=== PATIENT | female | born 1965 | race Caucasian/White ===

== ENCOUNTER 2020-03-08 16:44 | Outpatient (CLI) | payer BC, SELFPAY ==
[2020-03-08 17:28] LABS: SARS-CoV-2 Ag Negative (Negative)
== END 2020-03-08 16:45 | disposition home or self-care (01) ==
LOC: CHSLAB 16:49
PROVIDERS: PCP Internal Medicine; Visit Provider Internal Medicine
DX: Z20.828 Contact with and (suspected) exposure to other viral communicable diseases (principal)
CPT/HCPCS: 87426

== ENCOUNTER 2020-09-13 09:10 | Outpatient (CLI) | payer BC, SELFPAY ==
[2020-09-13 10:30] LABS: SARS-CoV-2 RNA PCR Negative (Negative)
== END 2020-09-13 09:11 | disposition home or self-care (01) ==
LOC: CHSLAB 09:13
PROVIDERS: PCP Internal Medicine; Visit Provider Internal Medicine
DX: Z20.822 Contact with and (suspected) exposure to COVID-19 (principal)
CPT/HCPCS: C9803; U0003; U0005

== ENCOUNTER 2020-09-28 08:26 | Outpatient (CLI) | payer BC, SELFPAY ==
--- NOTE | ~2020-09-28 | DEXA_ITS ---
Bone Density Report Name: Serene Chin Age: 55 Sex: Female Ethnicity: White Date of : 1965 Indication: postmenopausal; screening for osteoporosis; Referring Provider: Cali Sanchez Study: Bone densitometry was performed. Exam Date: September 28, 2020 Accession number: [id number] Bone Density: Region BMD T-score Z-score Classification AP Spine(L1, L3, L4) 1.116 0.6 1.6 Normal Femoral Neck (Left) 0.881 0.3 1.3 Normal Total Hip (Left) 1.020 0.6 1.3 Normal Femoral Neck (Right) 0.906 0.5 1.5 Normal Total Hip (Right) 1.063 1.0 1.6 Normal Femoral Neck Mean 0.894 0.4 1.4 Normal Total Hip Mean 1.042 0.8 1.5 Normal World Health Organization criteria for BMD impression classify patients as: Normal (T-score at or above -1.0), Osteopenia (T-score between -1.0 and -2.5), or Osteoporosis (T-score at or below -2.5). 10-year Fracture Risk: FRAX not reported because: All T-scores for Spine Total, Hip Total, Femoral Neck at or above -1.0 Clinical Information Provided by Patient: Patient maximum height was 65 Menopause Age: 50 No regular weight bearing exercise Drinks caffeinated beverages Onset of menses at age 14 Number of children 3 Impression: The patient has normal bone mass. Discussion: BONE DENSITY IS ABOVE THE MINIMUM DESIRABLE LEVEL AT ALL SKELETAL SITES TESTED. This patient?s bone mineral density is above the minimum desirable level (T-score -1.0 or better) at all sites measured. The patient should follow a healthful lifestyle (good nutrition with adequate calcium and vitamin D, and appropriate weight-bearing exercise). Follow-Up: Consider repeating this study in 5 years or sooner if there is some new clinical indication. Reported by: Dr. Toney Boyce on 09/28/2020 9:08:00 AM. Reviewed, dictated and finalized at location A. [facility]
--- NOTE | ~2020-09-28 | MM_ITS ---
EXAMINATION: MM screening jacqueline BI w leni HISTORY: Screening mammogram TECHNIQUE: Craniocaudal and mediolateral oblique 3-D tomosynthesis images were obtained and synthetic 2-D images were generated. CAD analysis was submitted and interpreted. COMPARISON: 10/08/2018 bilateral digital screening mammogram BREAST PARENCHYMAL COMPOSITION: The breasts are almost entirely fatty. FINDINGS: There is no evidence of suspicious mass, calcification, or architectural distortion to sugg est malignancy in either breast. There has been no suspicious interval change. IMPRESSION: 1. No mammographic evidence of malignancy. 2. Recommend routine screening mammography in one year. BI-RADS Category 1: Negative Reviewed, dictated and finalized at location A.
[2020-09-28 08:37] LABS: Appearance Urine Clear (Clear); Basophils Absolute Auto 0.04 K/mm3 (0.00-0.10); Basophils Percent Auto 0.5 % (0.0-1.0); Bilirubin Urine Negative (Negative); Blood Urine Negative (Negative); Eosinophils Absolute Auto 0.19 K/mm3 (0.02-0.50); Eosinophils Percent Auto 2.2 % (1.0-6.0); Glucose Urine UA Negative (Negative); Hematocrit 40.7 % (35.0-49.0); Hemoglobin 13.3 g/dL (12.0-15.0); Immature Granulocyte Absolute 0.02 K/mm3 (0.00-0.00); Immature Granulocyte Percent A 0.2 % (0.0-0.0); Ketones Urine Negative (Negative); Leukocyte Esterase Ur Negative (Negative); Lymphocytes Absolute Auto 2.46 K/mm3 (1.10-4.50); Lymphocytes Percent Auto 28.4 % (18.0-42.0); Mean Corpuscular HGB Conc 32.7 g/dL (32.0-36.0); Mean Corpuscular Hemoglobin 27.5 pg (27.0-31.0); Mean Corpuscular Volume 84.1 fL (78.0-102.0); Mean Platelet Volume 9.5 fl (9.2-11.8); Monocytes Absolute Auto 0.49 K/mm3 (0.10-0.90); Monocytes Percent Auto 5.7 % (2.0-11.0); Neutrophils Absolute Auto 5.5 K/mm3 (1.7-7.2); Nitrate Urine Negative (Negative); Platelet Count Result 333 K/mm3 (150-420); Protein Urine Negative (Negative); Red Blood Count 4.84 M/mm3 (4.20-5.40); Red Cell Distribution Width 13.2 % (11.6-14.4); Specific Grav Ur <= 1.005 (1.010-1.020); Urobilinogen Urine 0.2 mg/dL (0.2-1.0); White Blood Count 8.7 K/mm3 (4.8-10.8)
[2020-09-28 08:39] LABS: Add Urine Microscopic? NO; Color Urine Light Yellow (Yellow)
[2020-09-28 09:31] LABS: Alanine Aminotransferase 33 U/L (14-59); Albumin Level 4.1 g/dL (3.4-5.0); Alkaline Phosphatase 59 U/L (46-116); Anion Gap 8 mmol/L (8-16); Aspartate Amino Transferase 14 U/L (15-37); Bilirubin,Total 0.5 mg/dL (0.00-1.00); Blood Urea Nitrogen 13 mg/dL (7-18); Calcium 9.4 mg/dL (8.5-10.1); Carbon Dioxide 31 mmol/L (21-32); Chloride 101 mmol/L (98-108); Cholesterol 211 mg/dL (0-200); Estimated Glomerular Filt Rate > 60; Glucose 110 mg/dL (70-99); HDL Direct 44 mg/dL (40-60); LDL Cholesterol Calculated 145 mg/dL (<130); Osmolality Calculated 291 mOsm/kg (285-295); Potassium 4.4 mmol/L (3.5-5.1); Sodium 140 mmol/L (136-145); Thyroid Stimulating Hormone 1.85 uIU/mL (0.36-3.74); Total Protein 7.4 g/dL (6.4-8.2); Triglycerides 111 mg/dL (0-150)
[2020-09-28 12:31] LABS: Hemoglobin A1C 6.1 % (<5.7)
== END 2020-09-28 08:27 | disposition home or self-care (01) ==
PROVIDERS: PCP Internal Medicine; Visit Provider Internal Medicine
DX: Z00.00 Encounter for general adult medical examination without abnormal findings (principal); R73.01 Impaired fasting glucose; I10 Essential (primary) hypertension; Z12.31 Encounter for screening mammogram for malignant neoplasm of breast
CPT/HCPCS: 36415; 77063; 77067; 77080; 80053; 80061; 81003; 83036; 84443; 85025

== ENCOUNTER 2020-12-05 13:09 | Outpatient (CLI) | payer BC, SELFPAY ==
[2020-12-05 14:21] LABS: SARS-CoV-2 RNA PCR Negative (Negative)
== END 2020-12-05 13:10 | disposition home or self-care (01) ==
PROVIDERS: PCP Internal Medicine; Visit Provider Internal Medicine
DX: Z20.822 Contact with and (suspected) exposure to COVID-19 (principal)
CPT/HCPCS: C9803; U0003; U0005

== ENCOUNTER 2021-03-23 10:28 | Outpatient (CLI) | payer BC, SELFPAY ==
[2021-03-23 11:32] LABS: Influenza A QL RT-PCR Negative (Negative); Influenza B QL RT-PCR Negative (Negative); SARS-CoV-2 RNA PCR Negative (Negative)
== END 2021-03-23 10:29 | disposition home or self-care (01) ==
LOC: CHSIMG 10:30
PROVIDERS: PCP Internal Medicine; Visit Provider Internal Medicine
DX: R50.9 Fever, unspecified (principal); R11.0 Nausea; Z20.822 Contact with and (suspected) exposure to COVID-19
CPT/HCPCS: 87502; C9803; U0003; U0005

== ENCOUNTER 2021-04-30 09:39 | Outpatient (CLI) | payer BC, SELFPAY ==
[2021-04-30 11:03] LABS: Influenza Control Valid (Valid); SARS-CoV-2 Ag Negative (Negative)
== END 2021-04-30 09:40 | disposition home or self-care (01) ==
LOC: CHSLAB 09:41
PROVIDERS: PCP Internal Medicine; Visit Provider Internal Medicine
DX: J06.9 Acute upper respiratory infection, unspecified (principal); Z20.822 Contact with and (suspected) exposure to COVID-19
CPT/HCPCS: 87081; 87426; 87804; 87880; C9803

== ENCOUNTER 2022-12-14 07:43 | Outpatient (CLI) | payer SELFPAY ==
[2022-12-14 08:16] LABS: Basophils Absolute Auto 0.04 K/mm3 (0.00-0.10); Basophils Percent Auto 0.6 % (0.0-1.0); Eosinophils Absolute Auto 0.26 K/mm3 (0.02-0.50); Eosinophils Percent Auto 3.6 % (1.0-6.0); Hematocrit 37.2 % (35.0-49.0); Immature Granulocyte Absolute 0.01 K/mm3 (0.00-0.00); Immature Granulocyte Percent A 0.1 % (0.0-0.0); Lymphocytes Absolute Auto 1.95 K/mm3 (1.10-4.50); Lymphocytes Percent Auto 26.8 % (18.0-42.0); Mean Corpuscular HGB Conc 32.3 g/dL (32.0-36.0); Mean Corpuscular Hemoglobin 27.4 pg (27.0-31.0); Mean Corpuscular Volume 84.9 fL (78.0-102.0); Mean Platelet Volume 9.7 fl (9.2-11.8); Monocytes Absolute Auto 0.37 K/mm3 (0.10-0.90); Monocytes Percent Auto 5.1 % (2.0-11.0); Neutrophils Absolute Auto 4.6 K/mm3 (1.7-7.2); Neutrophils Percent Auto 63.8 % (50.0-70.0); Platelet Count Result 386 K/mm3 (150-420); Red Blood Count 4.38 M/mm3 (4.20-5.40); Red Cell Distribution Width 13.2 % (11.6-14.4); White Blood Count 7.3 K/mm3 (4.8-10.8)
[2022-12-14 08:23] LABS: Appearance Urine Clear (Clear); Bilirubin Urine Negative (Negative); Color Urine Light Yellow (Yellow); Glucose Urine UA Negative (Negative); Ketones Urine Negative (Negative); Leukocyte Esterase Ur Negative (Negative); Nitrate Urine Negative (Negative); Protein Urine Negative (Negative); Specific Grav Ur 1.015 (1.010-1.020); Urobilinogen Urine 0.2 mg/dL (0.2-1.0); pH Urine 5.5 (5.0-8.0)
[2022-12-14 08:24] LABS: Add Urine Microscopic? NO; Blood Urine Negative (Negative)
[2022-12-14 08:35] LABS: Hemoglobin A1C 6.3 % (<5.7)
[2022-12-14 08:40] LABS: Alanine Aminotransferase 22 U/L (14-59); Albumin Level 3.8 g/dL (3.4-5.0); Alkaline Phosphatase 68 U/L (46-116); Anion Gap 6 mmol/L (8-16); Aspartate Amino Transferase 13 U/L (15-37); Bilirubin,Total 0.6 mg/dL (0.00-1.00); Blood Urea Nitrogen 17 mg/dL (7-18); Calcium 8.9 mg/dL (8.5-10.1); Carbon Dioxide 31 mmol/L (21-32); Chloride 103 mmol/L (98-108); Cholesterol 212 mg/dL (0-200); Estimated Glomerular Filt Rate > 60; Glucose 102 mg/dL (70-99); HDL Direct 51 mg/dL (40-60); LDL Cholesterol Calculated 137 mg/dL (<130); Osmolality Calculated 291 mOsm/kg (285-295); Potassium 4.2 mmol/L (3.5-5.1); Sodium 140 mmol/L (136-145); Thyroid Stimulating Hormone 2.22 uIU/mL (0.36-3.74); Total Protein 6.9 g/dL (6.4-8.2); Triglycerides 118 mg/dL (0-150)
== END 2022-12-14 07:44 | disposition home or self-care (01) ==
LOC: CHSLAB 07:45
PROVIDERS: PCP Internal Medicine; Visit Provider Internal Medicine
DX: Z00.00 Encounter for general adult medical examination without abnormal findings (principal); I10 Essential (primary) hypertension; R73.03 Prediabetes
CPT/HCPCS: 36415; 80053; 80061; 81003; 83036; 84443; 85025

== ENCOUNTER 2022-12-16 14:12 | Outpatient (CLI) | payer OTHER, SELFPAY ==
--- NOTE | ~2022-12-16 | US_ITS ---
EXAMINATION: US venous doppler [facility] DATE: 12/16/2022 14:46 INDICATION: Lower limb swelling TECHNIQUE: Grayscale ultrasound images without and with compression and Doppler ultrasound images of the bilateral lower extremity veins were obtained. COMPARISON: None. FINDINGS: The visualized portions of right common femoral vein, profunda (deep) femoral vein, femoral vein, pop liteal vein, posterior tibial veins, peroneal veins, gastrocnemius vein and greater saphenous vein ou tflow are patent. The visualized portions of left common femoral vein, profunda femoral vein, femoral vein, popliteal v ein, posterior tibial veins, peroneal veins, gastrocnemius vein and greater saphenous vein outflow ar e patent. IMPRESSION: 1. No deep venous thrombosis in either lower limb. Reviewed, dictated and finalized at location A.
== END 2022-12-16 14:13 | disposition home or self-care (01) ==
PROVIDERS: PCP Internal Medicine; Visit Provider Internal Medicine
DX: R60.9 Edema, unspecified (principal)
CPT/HCPCS: 93970

== ENCOUNTER 2022-12-30 15:43 | Outpatient (CLI) | payer OTHER, SELFPAY ==
--- NOTE | ~2022-12-30 | XR_ITS ---
EXAMINATION: XR chest 2V 12/30/2022 16:49 INDICATION: Back pain. PROCEDURE: 2 view chest COMPARISON: No prior studies for comparison. FINDINGS: The lungs are clear. The cardiomediastinal silhouette is within normal limits. There are no pleural effusions. There is no pneumothorax suspected. IMPRESSION: 1: NO ACUTE CARDIOPULMONARY DISEASE. Reviewed, dictated and finalized at location B.
--- NOTE | ~2022-12-30 | XR_ITS ---
Thoracic spine: Clinical Indication: Back pain AP and lateral views were performed. No fracture is seen. There is normal alignment of the vertebrae. The intervertebral disc spaces appe ar normal. Paravertebral soft tissues appear normal. Impression: No significant abnormalities noted. Reviewed, dictated and finalized at [facility]. Impression: No significant abnormalities noted.
[2022-12-30 16:35] LABS: D Dimer 0.26 mg/L (0.19-0.50)
[2022-12-30 16:47] LABS: Sodium 140 mmol/L (136-145)
[2022-12-30 16:48] LABS: Alanine Aminotransferase 13 U/L (14-59); Albumin Level 3.9 g/dL (3.4-5.0); Alkaline Phosphatase 70 U/L (46-116); Anion Gap 4 mmol/L (8-16); Aspartate Amino Transferase 14 U/L (15-37); Bilirubin,Total 0.3 mg/dL (0.00-1.00); Blood Urea Nitrogen 21 mg/dL (7-18); Calcium 9.1 mg/dL (8.5-10.1); Carbon Dioxide 34 mmol/L (21-32); Chloride 102 mmol/L (98-108); Creatine Kinase 95 U/L (26-192); Estimated Glomerular Filt Rate > 60; Glucose 93 mg/dL (70-99); Magnesium 1.8 mg/dL (1.8-2.4); NT Pro B Type Natriuretic Pept 94 pg/mL (0-125); Osmolality Calculated 293 mOsm/kg (285-295); Potassium 3.7 mmol/L (3.5-5.1); Total Protein 7.5 g/dL (6.4-8.2); Troponin I 22.8 ng/L (0.00-60.4)
== END 2022-12-30 15:44 | disposition home or self-care (01) ==
LOC: CHSLAB 15:46
PROVIDERS: PCP Internal Medicine; Visit Provider Internal Medicine
DX: M54.6 Pain in thoracic spine (principal); R60.9 Edema, unspecified
CPT/HCPCS: 36415; 71046; 72070; 80053; 82550; 82553; 83735; 83880; 84484; 85380

== ENCOUNTER 2023-01-20 15:21 | Outpatient (CLI) | payer OTHER, SELFPAY ==
--- NOTE | ~2023-01-20 | CT_ITS ---
EXAMINATION: CT abdomen pelvis w con DATE: 01/20/2023 16:17 INDICATION: Abdominal pain, left upper quadrant and epigastric area, for one month TECHNIQUE: Computed tomography (CT) of the abdomen and pelvis was performed with 100 CC Omnipaque 350 intravenous contrast. Automated exposure control and iterative reconstruction technique were employe d. Exam dose: 1172.04 mGy-cm total exam DLP. COMPARISON: None. FINDINGS: The lung bases are clear. Normal heart size. No pericardial or pleural effusion. Status post cholecystectomy. No hepatic, splenic, pancreatic, and adrenal or renal space-occupying ma ss lesion. No urinary tract calculus or hydroureteronephrosis. The urinary bladder is evacuated. Normal caliber of the abdominal aorta. No intraperitoneal or retroperitoneal or pelvic mass lesion or adenopathy or ascites is detected. Small uterus with fibroids. Normal appendix. No bowel obstruction, bowel wall thickening, pneumatosis or intraperitoneal free air is detected. Very small fat-containing umbilical hernia. No suspicious osteolytic or osteoblastic lesions are noted. IMPRESSION: Status post cholecystectomy Normal appendix Reviewed, dictated and finalized at Location A. Reviewed, dictated and finalized at location B.
== END 2023-01-20 15:22 | disposition home or self-care (01) ==
PROVIDERS: PCP Internal Medicine; Visit Provider Internal Medicine
DX: R10.9 Unspecified abdominal pain (principal); Z90.49 Acquired absence of other specified parts of digestive tract
CPT/HCPCS: 74177; Q9967

== ENCOUNTER 2023-01-24 15:28 | Outpatient (CLI) | payer OTHER, SELFPAY ==
--- NOTE | ~2023-01-24 | MR_ITS ---
EXAMINATION: MR thoracic spine wo con DATE: 01/24/2023 16:12 INDICATION: Bilateral thoracic radiculopathy. TECHNIQUE: Magnetic resonance imaging (MRI) of the thoracic spine was performed without intravenous c ontrast. COMPARISON: Thoracic spine radiographs 12/30/2022 FINDINGS: Bone alignment is normal. Vertebral body heights and intervertebral disc heights are normal . The discs do not extend beyond the endplate margins in the thoracic spine. There is multilevel mild facet joint osteoarthritis. No neural foraminal stenosis or central canal stenosis. There is syringo hydromyelia from T2 to T7 with maximum diameter of 4 mm. At T9 and T10, there is syringohydromyelia w ith diameter of 1 mm. IMPRESSION: 1. 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 Reviewed, dictated and finalized at location E.
== END 2023-01-24 15:29 | disposition home or self-care (01) ==
PROVIDERS: PCP Internal Medicine; Visit Provider Internal Medicine
DX: M54.14 Radiculopathy, thoracic region (principal)
CPT/HCPCS: 72146

== ENCOUNTER 2023-03-20 08:08 | Outpatient (CLI) | payer OTHER, SELFPAY ==
--- NOTE | ~2023-03-20 | MR_ITS ---
MRI of the thoracic spine Clinical History: Syrinx Technique: Axial T2-weighted and gradient images, and sagittal T1-weighted, T2-weighted, and STIR miriam ges were acquired. Following intravenous administration of 20 cc MultiHance gadolinium, T1-weighted f at-sat imaging was performed in the axial and sagittal planes. Findings: There is no fracture or subluxations thoracic spine. Vertebral bodies maintain normal heigh t and alignment. No bone marrow signal abnormality seen. No disc bulge or herniation seen at any thoracic level. No spinal canal stenosis or cord compression identified. There is dilatation of the central canal the spinal cord at the T2 and T3 levels, to a maximum of 4 m m in diameter. No other abnormal signal seen in the spinal cord. No abnormal postcontrast enhancement identified. Paravertebral soft tissues are unremarkable. 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 No abnormal enha ncement or associated mass lesion identified. Reviewed, dictated and finalized at [facility]. 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 No abnormal enhancement or associated mass lesion identified.
--- NOTE | ~2023-03-20 | MR_ITS ---
MRI of the cervical spine Clinical History: Serial Technique: Axial T2-weighted and gradient images, and sagittal T1-weighted, T2-weighted, and STIR miriam ges were acquired. Following intravenous administration of 20 cc MultiHance gadolinium, T1-weighted f at-sat imaging was performed in the axial and sagittal planes. Findings: There is no fracture or subluxation. There is straightening of the normal cervical lordosis . No bone marrow signal abnormality seen. There is no significant disc bulge or herniation at any level. No spinal canal stenosis or cord comp ression identified in the cervical spine. There is right facet arthropathy and right neural foraminal narrowing at C3-C4. Remaining neural foramina are preserved. No abnormal signal seen in the cervical spinal cord. No syrinx of the cervical cord identified. No ab normal postcontrast enhancement identified. Paravertebral soft tissues are unremarkable. Impression: Cervical spinal cord is unremarkable. Right facet arthropathy with right neural foraminal narrowing at C3-C4. Reviewed, dictated and finalized at [facility]. ASSISTANT Impression: Cervical spinal cord is unremarkable. Right facet arthropathy with right neural foraminal narrowing at C3-C4.
== END 2023-03-20 08:09 ==
PROVIDERS: PCP Internal Medicine
DX: G95.0 Syringomyelia and syringobulbia (principal)
CPT/HCPCS: 72156; 72157; A9577

== ENCOUNTER 2023-03-26 15:50 | Outpatient (RCR) | payer OTHER, SELFPAY ==
--- NOTE | 2023-04-01 07:14 | OPREHPOC ---
Outpatient Therapy Plan of Care This is a Multidisciplinary Plan of Care that may contain components documented by all disciplines (PT, OT, and ST.) PT Problem 1 PT Problem #1 Knowledge Deficit PT Goal 1 Goal 1. independent and compliant with HEP Target Visit 2 PT Problem 2 PT Problem #2 Pain PT Goal 1 Goal 1. patient to report no return of lower back pain or LE symptoms. Target Visit 3 PT Problem 3 PT Problem #3 Impaired Strength PT Goal 1 Goal 1. improve core strength to 4/5 or better 2. improve bilateral hip strength to 5/5 Target Visit 3 PT Problem 4 PT Problem #4 Impaired Functional Mobil PT Goal 1 Goal 1. 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 oswestry to display no more than 20% functional decline Target Visit 3
--- NOTE | 2023-04-01 07:14 | PTOPEVAL1 ---
Assessment and note entered by JT File, PT Evaluation Information Assessment Status Evaluation Diagnosis midline back pain Onset 03/21/23 Subjective Information back in november, patient had pain in the midback that led around the L side to her chest, then it switched and went around the R side to her chest. she reports she also had diffculty with drinking coffee/hot liquids. she reports they found a cyst in her spine. she reports her pain will change frequently. she reports lately she has difficulty in the legs from her back. 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 Assessment PT Clinical Summary mrs. diego is a 57 yo woman who presents to skilled PT services for evaluation and treatment of lower back pain. she presents today without pain and without reproducible symptoms. she has a cyst in the spine that is a likely cause of the back pain and LE symptoms she reports at times. she displays some weakened core strength today, and would benefit from continued skilled PT to improve this strength. Plan of Care Interventions Electrical Stimulation,Hot Pack/Cold Pack,Manual Therapy,Neuro Re-education,Therapeutic Activities, Therapeutic Exercise PT Services Indicated Yes Treatment Frequency and 1x weekly for 3 visits Duration These treatments will address the objective and functional deficits as defined above. The patient will be advanced safely and appropriately in order for the patient to progress towards his/her prior level of function. Additional exercises will be introduced and as well as a comprehensive home exercise program upon discharge, if needed, ?to ensure carryover of functional gains achieved in the clinic. This treatment plan has been reviewed and agreement upon by the patient.
--- NOTE | 2023-04-18 11:18 | OPREHPOC ---
Outpatient Therapy Plan of Care This is a Multidisciplinary Plan of Care that may contain components documented by all disciplines (PT, OT, and ST.) PT Problem 1 PT Problem #1 Knowledge Deficit PT Goal 1 Goal 1. independent and compliant with HEP Target Visit 2 Progress Met PT Problem 2 PT Problem #2 Pain PT Goal 1 Goal 1. patient to report no return of lower back pain or LE symptoms. Target Visit 3 Progress Met PT Problem 3 PT Problem #3 Impaired Strength PT Goal 1 Goal 1. improve core strength to 4/5 or better 2. improve bilateral hip strength to 5/5 Target Visit 3 Progress Met PT Problem 4 PT Problem #4 Impaired Functional Mobil PT Goal 1 Goal 1. 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 oswestry to display no more than 20% functional decline Target Visit 3 Progress Met
--- NOTE | 2023-04-18 11:19 | PTOPDC ---
Assessment and note entered by JT File, PT Evaluation Information Assessment Status Discharge Diagnosis midline back pain Onset 03/21/23 Subjective Information patient reports he back feels good today. she reports she has no pain. she reports she has recently had a biopsy on the L arm, and reports the L elbow is a bit tender from this biopsy. Reported Pain Level Pain Score 0: Self Report Assessment PT Clinical Summary mrs. diego presents to skilled PT services for her 3rd skilled PT visit for midline back pain. she has had no pain since beginning therapy. her time in therapy has been spent working on improving LE and core strength. she has met all goals for skilled PT this date, and is ready to DC skilled PT. she will continue with HEP independent at home. Plan of Care PT Services Indicated Yes
== END 2023-04-18 14:47 | disposition home or self-care (01) ==
LOC: CHSPT 15:50
DX: M54.6 Pain in thoracic spine (principal)
CPT/HCPCS: 97110; 97161

== ENCOUNTER 2023-10-12 09:27 | Emergency (ER) | payer OTHER, SELFPAY ==
--- NOTE | ~2023-10-12 | XR_ITS ---
EXAMINATION: XR hand LT min 3V, XR wrist LT min 3V DATE: 10/12/2023 10:46 INDICATION: Left hand and wrist pain post fall TECHNIQUE: 1. Posteroanterior, ulnar deviation, oblique, and lateral views of the left wrist were obtained. 2. Dorsal palmar, oblique and lateral views of the left hand were obtained. COMPARISON: None. FINDINGS: Alignment of the hand and wrist is normal. No fracture identified. Mild osteoarthritis at the first carpometacarpal, the first metacarpophalangeal and multiple interphalangeal joints. Indolent appearin g lytic lesion with thin sclerotic margins at the left scaphoid waist likely representing a geode. N o focal soft tissue swelling. IMPRESSION: 1. Mild polyarticular osteoarthritis with no acute osseous abnormality at the left hand or wrist. Reviewed, dictated and finalized at location A. IMPRESSION: 1. Mild polyarticular osteoarthritis with no acute osseous abnormality at the l eft hand or wrist.
--- NOTE | ~2023-10-12 | XR_ITS ---
EXAMINATION: XR ribs LT 2V w CXR 2V DATE: 10/12/2023 10:46 INDICATION: Left rib pain post fall TECHNIQUE: PA and lateral views of the chest and 3 views of the left ribs were obtained. COMPARISON: Chest radiograph dated 12/30/22 FINDINGS: No rib fractures identified. No pneumothorax. No focal infiltrates, pleural effusion or pulmonary graeme ma. Cardiomediastinal silhouette is normal. Cholecystectomy clips in right upper quadrant. IMPRESSION: 1. No rib fracture or acute cardiopulmonary disease. Reviewed, dictated and finalized at location A.
[2023-10-12 09:51] VITALS: BP 149/87; PULSE 83; RESP 19; TEMP 37.3; O2SAT 96
--- NOTE | 2023-10-12 10:27 | ED.FALL ---
HPI - Fall General Chief Complaint: Fall Stated Complaint: fall down stairs last night-left hand and rib pain Time Seen by Provider: 10/12/23 10:01 Source: patient Mode of arrival: ambulatory Limitations: no limitations History of Present Illness HPI Narrative: [id number] female presents after an accidental fall when her 120 lb dog pulled on the leash and she accidentally fell on her left side Last night. She had some mild pain with her left knee and thigh however she states her primary issues are her left hand pain and left for pain as well as significant pain in her lateral and posterior left ribs. She denies any shortness of breath at rest although states that the pain is worse when she coughs or takes a deep breath. she took Aleve this morning. Related Data Allergies Allergy/AdvReac Type Severity Reaction Status Date / Time aspirin Allergy Severe PALPATATION Verified 10/12/23 10:00 S SWEET-N-LOW Allergy Severe TACHYCARDIA Uncoded 10/12/23 10:00 AND PALPATATIONS PMFSH Past Medical History Medical History (Updated 10/13/23 @ 00:01 by Nevaeh Willams) Right hand dominant Social History Social History (Updated 10/12/23 @ 10:40 by Yokasta Basilio MD) Additional living arrangements comments: Has a 120lb dog Exam Narrative: GENERAL: Well-appearing, well-nourished, and in no acute distress. HEAD: Normocephalic, atraumatic. EYES: Non injected, non icteric ENT: Nares clear, no rhinorrhea or epistaxis. NECK: Supple. CHEST: Speaking in full sentences. No respiratory distress. lungs clear to auscultation bilaterally with full inspiratory breath appreciated though slightly diminished on exhalation bilaterally. No ecchymossis along lateral /posterior chest. No subcutaneous emphysema. HEART: Regular rate and rhythm. . ABDOMEN: Soft, nondistended. EXTREMITIES: Normal range of motion. No edema. ecchymosis along mid and distal left thigh. Mild tenderness to palpation of left wrist and distal forearm. SKIN: Warm, dry, no rash. NEURO: No focal deficits. Alert and oriented x3. PSYCH: Normal mood and affect. Course Vital Signs Vital signs: Vital Signs Temperature 99.1 F 10/12/23 09:51 Pulse Rate 83 10/12/23 09:51 Respiratory Rate 19 06/23/24 09:51 Blood Pressure 149/87 H 10/12/23 09:51 Pulse Oximetry 96 10/12/23 09:51 Oxygen Delivery Room Air 10/12/23 09:51 Temperature 98.7 F 10/12/23 12:30 Pulse Rate 67 10/12/23 12:30 Respiratory Rate 18 10/12/23 12:30 Blood Pressure 131/70 10/12/23 12:30 Pulse Oximetry 100 10/12/23 12:30 Oxygen Delivery Room Air 10/12/23 09:51 MDM - Fall MDM Narrative Medical decision making narrative: Right hand dominant female presents with left hand/wrist pain and left sided chest/rib pain after accidentallly falling when the dog pulled on the leash. In the emergency department and vital signs show patient is afebrile but with mild hypertension. Patient initially attempted to go to urgent care because she didn't know if insurance covers ED visit. Not yet received imaging though. Patient given analgesic medication and will obtain plain film imaging. No acute process. Patient discharged in stable condition. Advised on supportive care and follow up. Differential Diagnosis Differential diagnosis: Likely other ( hand fracture/dislocation, wrist fracture/ dislocation, sprain/ strain, rib fracture; generalized MSK pain / contusion; PTX pulm contusion) Imaging Data Radiologist's impression: Impressions Hand X-Ray 10/12/23 10:51 IMPRESSION: 1. Mild polyarticular osteoarthritis with no acute osseous abnormality at the left hand or wrist. Wrist X-Ray 10/12/23 10:51 IMPRESSION: 1. Mild polyarticular osteoarthritis with no acute osseous abnormality at the left hand or wrist. Ribs w/Chest X-Ray 10/12/23 10:54 IMPRESSION: 1. No rib fracture or acute cardiopulmonary disease.
[2023-10-12] MEDS: HYDROcodone/acetaminophen (*CRX) 5-325 MG TABLET 1 TAB PO (10:35)
[2023-10-12] MEDS: KETOROLAC 30 MG/ML VIAL (*BKC) 15 MG IM (12:22)
[2023-10-12 12:30] VITALS: BP 131/70; PULSE 67; RESP 18; TEMP 37.1; O2SAT 100
--- NOTE | 2023-10-12 12:30 | PC.NURSE ---
Patient didn't want an jen wrap in the ER stated that she had one at home
== END 2023-10-12 12:33 | disposition home or self-care (01) ==
PROVIDERS: Emergency Provider Student in an Organized Health Care Education/Training Program
DX: S69.92XA Unspecified injury of left wrist, hand and finger(s), initial encounter (principal); S20.212A Contusion of left front wall of thorax, initial encounter; M19.042 Primary osteoarthritis, left hand; M18.9 Osteoarthritis of first carpometacarpal joint, unspecified; W18.39XA Other fall on same level, initial encounter; Y93.K1 Activity, walking an animal
CPT/HCPCS: 71046; 71100; 73110; 73130; 96372; 99284; A9270; J1885

== ENCOUNTER 2024-05-10 02:40 | Day surgery (SDC) | payer OTHER, SELFPAY ==
[2024-05-04 11:47] VITALS: BMI 39.1
[2024-05-10 10:17] VITALS: BP 152/90; PULSE 79; RESP 18; TEMP 36.4; O2SAT 98; BMI 40.7
--- NOTE | 2024-05-10 10:29 | P.PNAN_ITS ---
Anes - Initial Pre Proc Eval Procedure: Operation Date: 05/10/24 11:30 Proposed Procedures p Colonoscopy - Alber Purvis MD Date/Time: 05/10/24 10:29 Surgeon: Alber Purvis MD Pre Op Diagnosis: change in bowel habit Patient Data Age: 59 Gender: F Height: 1.65 m Weight: 111 kg Last Vital Signs Temp 36.4 C 05/10/24 10:17 Pulse 79 05/10/24 10:17 Resp 18 05/10/24 10:17 BP 152/90 H 05/10/24 10:17 Pulse Ox 98 05/10/24 10:17 O2 Del Method Room Air 05/10/24 10:17 Allergies Allergy/AdvReac Type Severity Reaction Status Date / Time aspirin Allergy Severe PALPATATION Verified 05/10/24 10:24 S SWEET-N-LOW Allergy Severe TACHYCARDIA Uncoded 05/10/24 10:24 AND PALPATATIONS NUTS AdvReac Intermediate RAW MOUTH Uncoded 05/10/24 10:24 Home Medications ?Medication ?Instructions ?Recorded ?Confirmed ?Type acetaminophen 500 mg capsule 1,000 mg (2 x 500 mg) PO Q6H PRN 10/12/23 05/04/24 Rx pain #20 caps valsartan 160 mg tablet 160 mg PO DAILY 05/04/24 05/10/24 History Patient hx anesthesia problems: none Family hx anesthesia problems: none Results Review: All pre-operative results and documents have been reviewed as part of the pre- operative evaluation. [facility] Past Medical History Medical History (Updated 05/10/24 @ 10:30 by Chema Schwab DO) Anemia Palpitation Hypertension Right hand dominant Social History Social History (Updated 10/12/23 @ 10:40 by Yokasta Basilio MD) Smoking packs per day: 0.5 Smoking cigarettes per day: 10.0 Years smoked: 14 Smoking pack-years: 7.00 Smoking status: Former smoker Tobacco type: cigarettes Alcohol intake: current Substance use: never Living arrangements: with family Additional living arrangements comments: Has a 120lb dog Spiritual care concerns: No Anes - Eval Final PreProcedure Day of Procedure 05/10/24 10:29 Patient weight: morbidly obese Heart: regular rate and rhythm Lungs: clear to auscultation Airway: Mallampati scale class II Neurological: alert and oriented Last oral intake: >/= 8 hours ASA classification: III Emergent: no Anesthetic plan: proceed Anesthesia type and monitoring: general GIVS and standard monitoring Results Review: All pre-operative results and documents have been reviewed as part of the pre- operative evaluation. Informed Consent: The patient's anesthetic plan and its attendant risks and benefits were discussed with the patient/family/POA. Questions were solicited and answers provided to the satisfaction of the patient/family/POA.
[2024-05-10] MEDS: LACTATED RINGERS 1,000 ML 150 ML IV CONT (10:42)
--- NOTE | 2024-05-10 11:06 | PM.IMHP ---
H&P: HPI History of Present Illness Date/Time: 05/10/24 11:06 Chief Complaint: Persistent diarrhea -screening colonoscopy Narrative: This is the patient's first colonoscopy. There there is no family history of colorectal cancer. in addition, patient states having almost permanent diarrhea for the past 6 months, approximately 2 bowel movements per day, always loose. There is no rectal bleeding, abdominal pain or unintentional weight loss. Review of Systems Review of Systems: All systems reviewed & are unremarkable except as noted in HPI and below PMFSH Past Medical History Medical History (Updated 05/10/24 @ 11:07 by Alber Purvis MD) Anemia Palpitation Hypertension Right hand dominant Social History Social History (Updated 10/12/23 @ 10:40 by Yokasta Basilio MD) Smoking packs per day: 0.5 Smoking cigarettes per day: 10.0 Years smoked: 14 Smoking pack-years: 7.00 Smoking status: Former smoker Tobacco type: cigarettes Alcohol intake: current Substance use: never Living arrangements: with family Additional living arrangements comments: Has a 120lb dog Spiritual care concerns: No Meds Home Medications and Allergies Home Medications ?Medication ?Instructions ?Recorded ?Confirmed ?Type acetaminophen 500 mg capsule 1,000 mg (2 x 500 mg) PO Q6H PRN 10/12/23 05/04/24 Rx pain #20 caps valsartan 160 mg tablet 160 mg PO DAILY 05/04/24 05/10/24 History Allergies Allergy/AdvReac Type Severity Reaction Status Date / Time aspirin Allergy Severe PALPATATION Verified 05/10/24 10:24 S SWEET-N-LOW Allergy Severe TACHYCARDIA Uncoded 05/10/24 10:24 AND PALPATATIONS NUTS AdvReac Intermediate RAW MOUTH Uncoded 05/10/24 10:24 Vital Signs Vital Signs - 24 hr 05/10/24 10:17 Temperature 97.6 F Pulse Rate 79 Respiratory Rate 18 Blood Pressure 152/90 H Pulse Oximetry 98 Oxygen Delivery Room Air Exam Const: General: cooperative and healthy appearing Resp: Effort & Inspection: normal respiratory effort and able to speak in complete sentences Auscultation: clear to auscultation bilaterally Cardio: Rate: regular rate Rhythm: regular rhythm GI: Inspection: normal to inspection GI Palp: No No hepatosplenomegaly present Auscultation: normal bowel sounds Rectal Exam: deferred Skin: General skin exam: normal color Psych: Appearance: grossly normal Mental Status: mental status grossly normal Assessment and Plan Assessment and plan (1) Diarrhea: Code(s): R19.7 - Diarrhea, unspecified Status: Acute Assessment and Plan: The patient is deemed a good candidate for the procedure. Consent signed. Will proceed, I will take biopsies of the left and right colon to rule out microscopic colitis.
[2024-05-10 11:32] VITALS: BP 117/73; PULSE 77; RESP 18; O2SAT 98
[2024-05-10 11:42] VITALS: BP 139/82; PULSE 72; RESP 18; O2SAT 100
[2024-05-10 11:52] VITALS: BP 135/90; PULSE 71; RESP 18; O2SAT 100
--- OUTSIDE RECORDS SUMMARY | 2024-05-13 11:20 | XMS_ITS | Referral Summary ---
Author Organization [facility] Address [address] [place] [address] Care Team Providers Care Lacemaker Name Role Phone Cali Sanchez MD Primary Care Provider [phone] Allergies Active Allergy Reactions Criticality Noted Date Comments Aspirin Unknown 01/09/2023 Medications torsemide (DEMADEX) 10 mg tablet Take 1 tablet (10 mg total) by mouth daily Active valsartan (DIOVAN) 160 mg tablet Take 1 tablet (160 mg total) by mouth daily Active gabapentin (NEURONTIN) 100 mg capsule 02/13/[address] (PROTONIX) 40 mg EC tablet 01/22/2023 Active valACYclovir (VALTREX) 1 gram tablet 12/31/2022 Active Active Problems No known active problems Social History Tobacco Use Types Packs/Day Years Used Date Smoking Tobacco: Never Assessed Comments Unknown Sex and Gender Information Value Date Recorded Sex Assigned at Not on file Legal Sex Female 2:44 AM COOKY PACKER Gender Identity Not on file Sexual Orientation Not on file Last Filed Vital Signs Vital Sign Reading Time Taken Comments Blood Pressure 154/88 02/26/2023 11:15 AM COOKY PACKER Pulse 84 02/26/2023 11:15 AM COOKY PACKER Temperature 36.8 ??C (98.2 ??F) 01/09/2023 4:48 PM CD T Respiratory Rate 18 01/09/2023 4:48 PM CDT Oxygen Saturation 99% 01/09/2023 4:48 PM CDT Inhaled Oxygen Concentration - - Weight 104 kg (229 lb 3.2 oz) 02/26/2023 11:15 A M COOKY PACKER Height 165.1 cm (5' 5 ) 02/26/2023 11:15 AM COOKY PACKER Body Mass Index 38.14 02/26/2023 11:15 AM COOKY PACKER Plan of Treatment Not on file Insurance [facility] H[facility]/PPO Address: [place] [address] [employer] [facility] Address: [place] [address] [employer] Address: [facility] [id number] [place] [address] Care Teams Lacemaker Relationship Specialty Start Date End Date Cali Sanchez MD PCP - General Internal Medicine 11/13/22
--- OUTSIDE RECORDS SUMMARY | 2024-05-13 11:20 | XMS_ITS | Clinical Summary ---
Author Organization [facility] Address [address] [place] [address] Care Team Providers Care Clinic Receptionist Name Role Phone Cali Sanchez MD Primary Care Provider [phone] Allergies Active Allergy Reactions Criticality Noted Date [...] on file Legal Sex Female 2:44 AM CORRECTIONAL CAPTAIN Gender Identity Not on file Sexual Orientation Not on file Obstetrics History Last Filed Vital Signs Vital Sign Reading Time Taken Comments Blood Pressure 154/88 02/26/2023 11:15 AM CORRECTIONAL CAPTAIN Pulse 84 02/26/2023 11:15 AM CORRECTIONAL CAPTAIN Temperature 36.8 ??C (98.2 ??F) 01/09/2023 4:48 PM CD T Respiratory Rate 18 01/09/2023 4:48 PM CDT Oxygen Saturation 99% 01/09/2023 4:48 PM CDT Inhaled Oxygen Concentration - - Weight 104 kg (229 lb 3.2 oz) 02/26/2023 11:15 A M CORRECTIONAL CAPTAIN Height 165.1 cm (5' 5 ) 02/26/2023 11:15 AM CORRECTIONAL CAPTAIN Body Mass Index 38.14 02/26/2023 11:15 AM CORRECTIONAL CAPTAIN Plan of Treatment Health Maintenance Due Date Last Done Comments Breast Cancer Screening-Mammogram 1966 Cervical Cancer Screening 1966 Colon Cancer Screening-Colonoscopy 1966 Depression Screening 1966 Hepatitis C Screening 1966 DTaP/Tdap/Td Vaccine (1 - Tdap) 1977 Hepatitis B Screening 1984 Regular Well Visit/Exam 18-64 1984 Zoster Vaccine (1 of 2) 2016 Influenza Vaccine (#1) 2023 Pneumococcal vaccine <65 Aged Out No longer eligible based on patient's age to complete this topic Insurance [employer]US [facility] CHOICE PLUS [place] [id number] Care Teams Clinic Receptionist Relationship Specialty Start Date End Date Cali Sanchez MD PCP - General Internal Medicine 11/13/22
== END 2024-05-10 12:10 | disposition home or self-care (01) ==
PROVIDERS: PCP Internal Medicine; Visit Provider Internal Medicine Gastroenterology
PROC: 0DJD8ZZ Inspection of Lower Intestinal Tract, Via Natural or Artificial Opening Endoscopic (ICD-10-PCS; CPT 45378; principal; 2024-05-10 11:30)
DX: R19.7 Diarrhea, unspecified (principal); Z87.891 Personal history of nicotine dependence; E66.01 Morbid (severe) obesity due to excess calories; Z68.41 Body mass index [BMI] 40.0-44.9, adult
CPT/HCPCS: 45380; 88305; J2003; J2704; J7120